=== PATIENT | male | born 1950 | race African-American/Black ===

== ENCOUNTER 2018-09-03 22:05 | Emergency (ER) | payer MEDICARE, MEDICAID ==
[~2018-09-03] VITALS: Ht 167.6 cm; Wt 75.0 kg
[~2018-09-03 22:05] MED LIST: CLOZ100T35; DOCU250C30; TRIH2TAB3
[2018-09-03] MEDS ORDERED: HALOPERIDOL LACTATE 5MG/ML VIAL IM ONE (23:15)
[2018-09-03 23:52] LABS: CLARITY URINE CLEAR (CLEAR); COLOR URINE YELLOW (YELLOW); KETONES URINE 2+ (NEGATIVE); LEUKOCYTE ESTERASE URINE NEGATIVE (NEGATIVE); NITRITE URINE NEGATIVE (NEGATIVE); OCCULT BLOOD URINE NEGATIVE (NEGATIVE); PROTEIN URINE TRACE (NEGATIVE); SPECIFIC GRAVITY URINE 1.029 (1.005-1.030)
[2018-09-04 00:07] LABS: *AMPHETAMINES SCREEN URINE NEGATIVE (NEGATIVE); *BARBITURATES SCREEN URINE NEGATIVE (NEGATIVE); *BENZODIAZEPINES SCREEN URINE NEGATIVE (NEGATIVE); *COCAINE SCREEN URINE NEGATIVE (NEGATIVE); CANNABINOID URINE SCREEN NEGATIVE (NEGATIVE); METHADONE URINE SCREEN NEGATIVE (NEGATIVE); OPIATES URINE SCREEN NEGATIVE (NEGATIVE); PHENCYCLIDINE URINE SCREEN NEGATIVE (NEGATIVE)
[2018-09-04 00:19] LABS: BASOPHILS % 0.2 % (0.0-2.0); HEMATOCRIT. 38.9 % (42.0-52.0); LYMPHOCYTES % 20.1 % (20.0-50.0); MEAN CORPUSCULAR HEMOGLOBIN 30.9 pg (28.0-32.0); MEAN CORPUSCULAR VOLUME 92.8 fL (80.0-94.0); MEAN PLATELET VOLUME 7.6 fl (7.4-10.4); MONOCYTES % 7.4 % (2.0-8.0); NEUTROPHILS % 72.3 % (40.0-76.0); PLATELET 206 x1000/uL (130-400); RED CELL DISTRIBUTION WIDTH 16.8 % (11.6-14.6)
[2018-09-04 00:27] LABS: CHLORIDE 110 mEq/L (98-107)
[2018-09-04 00:31] LABS: ETHANOL BLOOD < 10 mg/dL
[2018-09-04 09:15] VITALS: BP 138/78
== END 2018-09-04 13:49 | disposition home or self-care (01) ==
LOC: ER 22:05
DX: F20.9 Schizophrenia, unspecified (principal); F17.210 Nicotine dependence, cigarettes, uncomplicated
CPT/HCPCS: 36415; 80053; 80305; 80307; 80320; 80329; 81003; 83690; 85025; 93005; 96372; 99284; J1630; G0480

== ENCOUNTER 2019-10-22 21:31 | Emergency (ER) | payer MEDICARE, OTHER ==
[~2019-10-22] VITALS: Ht 170.2 cm; Wt 71.0 kg
[2019-10-22] MEDS ORDERED: SODIUM CHLORIDE 0.9% 1,000 ML IV ONE (23:27)
[2019-10-22] MEDS ORDERED: ONDANSETRON HCL 4MG/2ML INJ IV STA (23:27)
[2019-10-23 00:37] LABS: CHLORIDE 95 mEq/L (98-107)
[2019-10-23 00:40] LABS: BASOPHILS % 0.1 % (0.0-2.0); HEMATOCRIT. 36.3 % (42.0-52.0); HEMOGLOBIN. 12.5 g/dL (14.0-18.0); MEAN CORPUSCULAR HEMOGLOBIN 31.8 pg (28.0-32.0); MEAN CORPUSCULAR VOLUME 92.2 fL (80.0-94.0); MEAN PLATELET VOLUME 7.3 fl (7.4-10.4); MONOCYTES % 6.8 % (2.0-8.0); NEUTROPHILS % 64.1 % (40.0-76.0); PLATELET 238 x1000/uL (130-400); RED BLOOD CELL COUNT 3.94 mill/uL (4.7-6.1)
[2019-10-23 01:38] LABS: CLARITY URINE CLEAR (CLEAR); COLOR URINE YELLOW (YELLOW); KETONES URINE NEGATIVE (NEGATIVE); LEUKOCYTE ESTERASE URINE NEGATIVE (NEGATIVE); NITRITE URINE NEGATIVE (NEGATIVE); OCCULT BLOOD URINE NEGATIVE (NEGATIVE); PROTEIN URINE NEGATIVE (NEGATIVE); SPECIFIC GRAVITY URINE 1.007 (1.005-1.030); UROBILINOGEN URINE 0.2 E.U./dL (0.2-1.0)
[2019-10-23 10:00] VITALS: BP 130/65
== END 2019-10-23 10:37 | disposition left against medical advice (07) ==
LOC: ER 21:31 → EDBEDREQ 10-23 03:42 → EDBEDREQTM 10-23 03:42 → ENRESERV 10-23 08:14 → ER 10-23 10:37 → CANBEDREQ 10-23 11:54
DX: E87.1 Hypo-osmolality and hyponatremia (principal); J44.1 Chronic obstructive pulmonary disease with (acute) exacerbation; F03.90 Unspecified dementia, unspecified severity, without behavioral disturbance, psychotic disturbance, mood disturbance, and anxiety; F17.200 Nicotine dependence, unspecified, uncomplicated
CPT/HCPCS: 36415; 71045; 80053; 81003; 83605; 84484; 85025; 87040; 93005; 96361; 96374; 99285; J2405; J7030

== ENCOUNTER 2020-05-01 10:14 | Inpatient (IN) | payer MEDICARE, MEDICAID ==
[~2020-05-01] VITALS: Ht 167.6 cm; Wt 67.2 kg
[2020-05-01] MEDS ORDERED: TETANUS, DIPHTHERIA, PERTUSSIS VAC/PF 0.5ML (>7YR OLD) IM ONE (10:30)
[2020-05-01 10:46] LABS: BASOPHILS % 0.8 % (0.0-2.0); HEMATOCRIT. 35.1 % (42.0-52.0); HEMOGLOBIN. 12.2 g/dL (14.0-18.0); LYMPHOCYTES % 15.4 % (20.0-50.0); MEAN CORPUSCULAR HEMOGLOBIN 31.5 pg (28.0-32.0); MEAN PLATELET VOLUME 7.4 fl (7.4-10.4); MONOCYTES % 5.9 % (2.0-8.0); NEUTROPHILS % 77.9 % (40.0-76.0); PLATELET 219 x1000/uL (130-400); RED BLOOD CELL COUNT 3.86 mill/uL (4.7-6.1); RED CELL DISTRIBUTION WIDTH 14.7 % (11.6-14.6)
[2020-05-01 10:52] LABS: CHLORIDE 88 mEq/L (98-107)
[2020-05-01 10:56] LABS: ETHANOL BLOOD < 10 mg/dL
[2020-05-01] MEDS ORDERED: DIPHENHYDRAMINE 50MG/ML VIAL ONE (10:56)
[2020-05-01 10:59] LABS: LDL CHOLESTEROL 71 mg/dL (5-100)
[2020-05-01] MEDS ORDERED: DIPHENHYDRAMINE 50MG/ML VIAL IM ONE (11:00)
[2020-05-01] MEDS ORDERED: HALOPERIDOL LACTATE 5MG/ML VIAL IM ONE (11:00)
[2020-05-01 11:11] LABS: CREATINE KINASE 1600 IU/L (39-308)
[2020-05-01] MEDS ORDERED: LORAZEPAM 2MG/ML CPJ IV ONE ×2 (11:15→12:45)
[2020-05-01] MEDS ORDERED: IOHEXOL 350 MG/ML 200ML INFUS..BTL IV ONE (11:43)
[2020-05-01 11:58] LABS: PROTHROMBIN TIME 10.3 sec (9.6-11.0)
[2020-05-01 12:39] LABS: CLARITY URINE CLEAR (CLEAR); COLOR URINE YELLOW (YELLOW); KETONES URINE NEGATIVE (NEGATIVE); LEUKOCYTE ESTERASE URINE NEGATIVE (NEGATIVE); NITRITE URINE NEGATIVE (NEGATIVE); OCCULT BLOOD URINE TRACE (NEGATIVE); PROTEIN URINE NEGATIVE (NEGATIVE); SPECIFIC GRAVITY URINE 1.014 (1.005-1.030); UROBILINOGEN URINE 0.2 E.U./dL (0.2-1.0)
[2020-05-01] MEDS ORDERED: LIDOCAINE HCL/PF 1% 10 MG/ML 5ML VIAL IJ ONE (12:45)
[2020-05-01] MEDS ORDERED: BACITRACIN ZINC OINT UDPKT TOP ONE (12:45)
[2020-05-01] MEDS ORDERED: SODIUM CHLORIDE 0.9% 500 ML IV ONE (13:15)
[2020-05-01 13:19] LABS: *AMPHETAMINES SCREEN URINE NEGATIVE (NEGATIVE); *BARBITURATES SCREEN URINE NEGATIVE (NEGATIVE); *BENZODIAZEPINES SCREEN URINE NEGATIVE (NEGATIVE); *COCAINE SCREEN URINE NEGATIVE (NEGATIVE); METHADONE URINE SCREEN NEGATIVE (NEGATIVE)
[2020-05-01 13:20] LABS: OPIATES URINE SCREEN NEGATIVE (NEGATIVE); PHENCYCLIDINE URINE SCREEN NEGATIVE (NEGATIVE)
[2020-05-01 13:29] LABS: CANNABINOID URINE SCREEN NEGATIVE (NEGATIVE)
[2020-05-01] MEDS ORDERED: MAGNESIUM/ALUMINUM HYDROXIDE/SIMETHICONE 30ML UDC PO PRN (14:30)
[2020-05-01] MEDS ORDERED: ONDANSETRON HCL 4MG/2ML INJ IV PRN (14:30)
[2020-05-01] MEDS ORDERED: DOCUSATE SODIUM 100MG CAPSULE PO PRN (14:30)
[2020-05-01] MEDS ORDERED: HALOPERIDOL LACTATE 5MG/ML VIAL IM PRN (14:30)
[2020-05-01] MEDS ORDERED: ZOLPIDEM TARTRATE 5MG TABLET PO PRN (14:30)
[2020-05-01] MEDS ORDERED: IPRATROPIUM/ALBUTEROL 0.5-3(2.5)MG/3ML NEB NEB PRN (14:30)
[2020-05-01] MEDS ORDERED: NITROGLYCERIN 0.4MG TABLET SL SL PRN (14:30)
[2020-05-01] MEDS ORDERED: GUAIFENESIN 200MG/10ML SUGAR FREE UDC PO PRN (14:30)
[2020-05-01] MEDS ORDERED: CLONIDINE 0.1MG TABLET PO PRN (14:30)
[2020-05-01] MEDS ORDERED: ACETAMINOPHEN 325MG TABLET PO PRN ×2 (14:30)
[2020-05-01 14:56] LABS: T4 FREE 1.25 ng/dL (0.76-1.46)
[2020-05-01 15:07] LABS: FOLIC ACID (FOLATE) SERUM 17.6 ng/mL (>5.38)
[2020-05-01] MEDS: ENOXAPARIN 40MG/0.4ML SYR SUBCUT SCH (15:15)
[2020-05-01] MEDS: SODIUM CHLORIDE 0.9% 1,000 ML IV SCH (15:15)
[2020-05-01 19:14] VITALS: BP 129/65
[2020-05-01 19:29] VITALS: BP 117/57
[2020-05-01 20:00] VITALS: BP 128/63
[2020-05-01] MEDS: FAMOTIDINE 20MG TABLET PO SCH (21:00)
[2020-05-01] MEDS: METOPROLOL TARTRATE 25MG TABLET PO SCH (21:00)
[2020-05-01 22:00] VITALS: BP 132/65
[2020-05-02] VITALS (17 sets, daily range): BP systolic 107–143; BP diastolic 52–74
[2020-05-02 00:27] LABS: CREATINE KINASE MB FRACTION 7.7 ng/mL (0.5-3.6)
[2020-05-02] MEDS ORDERED: HAL5 PO (02:20)
[2020-05-02] MEDS: SODIUM CHLORIDE 0.9% 1,000 ML IV SCH ×2 (04:45→16:43)
[2020-05-02 07:29] LABS: CHLORIDE 105 mEq/L (98-107)
[2020-05-02 07:35] LABS: BASOPHILS % 0.4 % (0.0-2.0); HEMATOCRIT. 39.1 % (42.0-52.0); HEMOGLOBIN. 13.1 g/dL (14.0-18.0); MEAN CORPUSCULAR HEMOGLOBIN 31.2 pg (28.0-32.0); MEAN CORPUSCULAR VOLUME 93.1 fL (80.0-94.0); MEAN PLATELET VOLUME 7.5 fl (7.4-10.4); MONOCYTES % 9.4 % (2.0-8.0); NEUTROPHILS % 66.2 % (40.0-76.0); PLATELET 215 x1000/uL (130-400); RED CELL DISTRIBUTION WIDTH 15.1 % (11.6-14.6)
[2020-05-02 07:37] LABS: PHOSPHORUS 2.9 mg/dL (2.5-4.9)
[2020-05-02 07:52] LABS: CREATINE KINASE 2759 IU/L (39-308)
[2020-05-02] MEDS: METOPROLOL TARTRATE 25MG TABLET PO SCH ×2 (08:30→20:23)
[2020-05-02] MEDS: CHOLECALCIFEROL (D3) 1000 UNIT TABLET PO SCH (08:30)
[2020-05-02] MEDS: ASPIRIN 325MG EC TABLET PO SCH (08:30)
[2020-05-02] MEDS: FAMOTIDINE 20MG TABLET PO SCH ×2 (08:31→20:22)
[2020-05-02] MEDS: ENOXAPARIN 40MG/0.4ML SYR SUBCUT SCH (08:31)
[2020-05-02] MEDS: ZINC SULFATE 220 MG ( 50 ) CAPSULE PO SCH (08:32)
[2020-05-03] VITALS (14 sets, daily range): BP systolic 119–155; BP diastolic 49–86
[2020-05-03] MEDS: SODIUM CHLORIDE 0.9% 1,000 ML IV SCH ×2 (05:39→19:24)
[2020-05-03] MEDS: ENOXAPARIN 40MG/0.4ML SYR SUBCUT SCH (10:18)
[2020-05-03] MEDS: CHOLECALCIFEROL (D3) 1000 UNIT TABLET PO SCH (10:18)
[2020-05-03] MEDS: ZINC SULFATE 220 MG ( 50 ) CAPSULE PO SCH (10:18)
[2020-05-03] MEDS: ASPIRIN 325MG EC TABLET PO SCH (10:18)
[2020-05-03] MEDS: FAMOTIDINE 20MG TABLET PO SCH ×2 (10:19→20:18)
[2020-05-03] MEDS: METOPROLOL TARTRATE 25MG TABLET PO SCH ×2 (10:19→20:18)
[2020-05-04] VITALS (8 sets, daily range): BP systolic 121–154; BP diastolic 51–73
[2020-05-04 06:48] LABS: BASOPHILS % 0.4 % (0.0-2.0); EOSINOPHILS % 0.4 % (0.0-5.0); HEMATOCRIT. 38.5 % (42.0-52.0); HEMOGLOBIN. 12.9 g/dL (14.0-18.0); LYMPHOCYTES % 35.6 % (20.0-50.0); MEAN CORPUSCULAR HEMOGLOBIN 31.6 pg (28.0-32.0); MEAN CORPUSCULAR VOLUME 94.4 fL (80.0-94.0); MEAN PLATELET VOLUME 7.4 fl (7.4-10.4); MONOCYTES % 10.8 % (2.0-8.0); NEUTROPHILS % 52.8 % (40.0-76.0); PLATELET 212 x1000/uL (130-400); RED BLOOD CELL COUNT 4.08 mill/uL (4.7-6.1); RED CELL DISTRIBUTION WIDTH 15.3 % (11.6-14.6)
[2020-05-04 07:06] LABS: CHLORIDE 107 mEq/L (98-107)
[2020-05-04 07:19] LABS: PHOSPHORUS 3.2 mg/dL (2.5-4.9)
[2020-05-04] MEDS: SODIUM CHLORIDE 0.9% 1,000 ML IV SCH (08:02)
[2020-05-04] MEDS: METOPROLOL TARTRATE 25MG TABLET PO SCH (08:02)
[2020-05-04] MEDS: ENOXAPARIN 40MG/0.4ML SYR SUBCUT SCH (08:03)
[2020-05-04] MEDS: ASPIRIN 325MG EC TABLET PO SCH (08:03)
[2020-05-04] MEDS: FAMOTIDINE 20MG TABLET PO SCH (08:03)
[2020-05-04] MEDS: ZINC SULFATE 220 MG ( 50 ) CAPSULE PO SCH (08:03)
[2020-05-04] MEDS: CHOLECALCIFEROL (D3) 1000 UNIT TABLET PO SCH (08:03)
== END 2020-05-04 15:15 | disposition home health service (06) | DRG 640 ==
LOC: ER 10:30 → 3WST 13:41 → EDBEDREQSVC 13:51 → EDBEDREQ 13:51 → EDBEDREQSVC 15:08 → ENRESERV 15:32 → 3WST 05-02 11:23
PROVIDERS: ADMIT Internal Medicine; ATTEND Internal Medicine
PROC: 0HQNXZZ Repair Left Foot Skin, External Approach (ICD-10-PCS; principal; 2020-05-01)
DX: E87.1 Hypo-osmolality and hyponatremia (principal); G92 Toxic encephalopathy; M62.82 Rhabdomyolysis; E44.1 Mild protein-calorie malnutrition; D63.8 Anemia in other chronic diseases classified elsewhere; E83.51 Hypocalcemia; S91.312A Laceration without foreign body, left foot, initial encounter; F03.90 Unspecified dementia, unspecified severity, without behavioral disturbance, psychotic disturbance, mood disturbance, and anxiety; F20.9 Schizophrenia, unspecified; E87.8 Other disorders of electrolyte and fluid balance, not elsewhere classified; I10 Essential (primary) hypertension; Z78.1 Physical restraint status; Z79.899 Other long term (current) drug therapy; Z68.23 Body mass index [BMI] 23.0-23.9, adult
CPT/HCPCS: 36415; 70496; 70498; 71045; 80053; 80061; 80305; 80320; 81003; 82140; 82550; 82553; 82607; 82746; 82962; 83036; 83540; 83550; 83605; 83721; 83735; 83880; 84100; 84439; 84484; 85025; 90715; 93005; 93970; 97162; 97166; 99285; J1200; J1630; J1650; J2060; J2405; J3490; J7040; Q9967; G0480

== ENCOUNTER 2020-11-07 13:22 | Inpatient (IN) | payer MEDICARE, OTHER ==
[~2020-11-07] VITALS: Ht 167.6 cm; Wt 70.0 kg
[~2020-11-07 13:22] MED LIST changes: +HAL5 PO
[2020-11-07 16:34] LABS: BASOPHILS % 0.4 % (0.0-2.0); EOSINOPHILS % 0.3 % (0.0-5.0); HEMATOCRIT. 43.4 % (42.0-52.0); HEMOGLOBIN. 14.9 g/dL (14.0-18.0); LYMPHOCYTES % 29.5 % (20.0-50.0); MEAN CORPUSCULAR HEMOGLOBIN 31.8 pg (28.0-32.0); MEAN CORPUSCULAR VOLUME 92.6 fL (80.0-94.0); MEAN PLATELET VOLUME 7.2 fl (7.4-10.4); MONOCYTES % 8.4 % (2.0-8.0); NEUTROPHILS % 61.4 % (40.0-76.0); PLATELET 256 x1000/uL (130-400); RED BLOOD CELL COUNT 4.69 mill/uL (4.7-6.1); RED CELL DISTRIBUTION WIDTH 16.1 % (11.6-14.6)
[2020-11-07 16:36] LABS: CHLORIDE 108 mEq/L (98-107)
[2020-11-07 16:40] LABS: INR 0.9; PARTIAL THROMBOPLASTIN TIME 30.3 sec (23.4-31.0); PROTHROMBIN TIME 10.2 sec (9.6-11.0)
[2020-11-07] MEDS ORDERED: ASPIRIN 325MG EC TABLET PO ONE (17:15)
[2020-11-07 20:50] VITALS: BP 134/77
[2020-11-08] VITALS: BP 125/74
[2020-11-08] MEDS ORDERED: ACETAMINOPHEN 650MG/20.3ML UDC PO PRN
[2020-11-08] MEDS ORDERED: CLONIDINE 0.1MG TABLET PO PRN
[2020-11-08] MEDS ORDERED: IPRATROPIUM/ALBUTEROL 0.5-3(2.5)MG/3ML NEB HHN PRN ×2
[2020-11-08] MEDS: NICOTINE 14MG PATCH TD SCH (01:00)
[2020-11-08] MEDS ORDERED: TOPUD MT (01:44)
[2020-11-08 04:00] VITALS: BP 130/82
[2020-11-08 08:00] VITALS: BP 134/70
[2020-11-08] MEDS ORDERED: PNEUMOCOCCAL 23-VAL P-SAC VAC 0.5 ML IM ONE (08:00)
[2020-11-08] MEDS: ASPIRIN 81MG TABLET PO SCH (08:15)
[2020-11-08 12:00] VITALS: BP 127/74
[2020-11-08 12:24] LABS: *BENZODIAZEPINES SCREEN URINE NEGATIVE (NEGATIVE); *COCAINE SCREEN URINE NEGATIVE (NEGATIVE); METHADONE URINE SCREEN NEGATIVE (NEGATIVE); OPIATES URINE SCREEN NEGATIVE (NEGATIVE); PHENCYCLIDINE URINE SCREEN NEGATIVE (NEGATIVE)
[2020-11-08 12:25] LABS: *AMPHETAMINES SCREEN URINE NEGATIVE (NEGATIVE); *BARBITURATES SCREEN URINE NEGATIVE (NEGATIVE); CANNABINOID URINE SCREEN NEGATIVE (NEGATIVE)
[2020-11-08 16:00] VITALS: BP 106/64
[2020-11-08 16:17] LABS: BASOPHILS % 0.4 % (0.0-2.0); EOSINOPHILS % 0.5 % (0.0-5.0); HEMATOCRIT. 41.3 % (42.0-52.0); HEMOGLOBIN. 14.3 g/dL (14.0-18.0); LYMPHOCYTES % 38.3 % (20.0-50.0); MEAN CORPUSCULAR HEMOGLOBIN 31.5 pg (28.0-32.0); MEAN CORPUSCULAR VOLUME 90.9 fL (80.0-94.0); MEAN PLATELET VOLUME 7.2 fl (7.4-10.4); MONOCYTES % 10.1 % (2.0-8.0); NEUTROPHILS % 50.7 % (40.0-76.0); PLATELET 241 x1000/uL (130-400); RED BLOOD CELL COUNT 4.55 mill/uL (4.7-6.1); RED CELL DISTRIBUTION WIDTH 15.7 % (11.6-14.6)
[2020-11-08 20:00] VITALS: BP 130/89
[2020-11-08 20:35] LABS: CHLORIDE 106 mEq/L (98-107)
[2020-11-09] VITALS: BP 115/72
[2020-11-09 04:00] VITALS: BP 106/65
[2020-11-09 08:30] VITALS: BP 104/71
[2020-11-09] MEDS: HALOPERIDOL 5MG TABLET PO SCH ×2 (10:03→20:43)
[2020-11-09] MEDS: NICOTINE 14MG PATCH TD SCH (10:03)
[2020-11-09] MEDS: ASPIRIN 81MG TABLET PO SCH (10:04)
[2020-11-09 12:00] VITALS: BP 104/50
[2020-11-09 12:31] LABS: CHLORIDE 102 mEq/L (98-107)
[2020-11-09 16:00] VITALS: BP 116/76
[2020-11-09] MEDS: ONDANSETRON HCL 4MG/2ML INJ IV PRN ×2 (17:28→21:59)
[2020-11-09 20:00] VITALS: BP_SYST 113; BP_SYST 126; BP_DIAS 43; BP_DIAS 46
[2020-11-09] MEDS: BENZTROPINE MESYLATE 1MG TABLET PO SCH (20:43)
[2020-11-10] VITALS: BP 117/33
[2020-11-10 04:00] VITALS: BP 116/62
[2020-11-10 06:44] LABS: BASOPHILS % 0.3 % (0.0-2.0); EOSINOPHILS % 0.6 % (0.0-5.0); HEMATOCRIT. 38.1 % (42.0-52.0); HEMOGLOBIN. 13.1 g/dL (14.0-18.0); LYMPHOCYTES % 41.6 % (20.0-50.0); MEAN CORPUSCULAR HEMOGLOBIN 31.5 pg (28.0-32.0); MEAN CORPUSCULAR VOLUME 91.7 fL (80.0-94.0); MEAN PLATELET VOLUME 7.3 fl (7.4-10.4); MONOCYTES % 10.7 % (2.0-8.0); NEUTROPHILS % 46.8 % (40.0-76.0); PLATELET 230 x1000/uL (130-400); RED BLOOD CELL COUNT 4.16 mill/uL (4.7-6.1); RED CELL DISTRIBUTION WIDTH 15.3 % (11.6-14.6)
[2020-11-10 07:58] LABS: CHLORIDE 103 mEq/L (98-107)
[2020-11-10 08:00] VITALS: BP 133/61
[2020-11-10] MEDS: NICOTINE 14MG PATCH TD SCH (08:53)
[2020-11-10] MEDS: HALOPERIDOL 5MG TABLET PO SCH ×2 (08:53→21:52)
[2020-11-10] MEDS: ASPIRIN 81MG TABLET PO SCH (08:53)
[2020-11-10 12:00] VITALS: BP 125/57
[2020-11-10 16:00] VITALS: BP 123/70
[2020-11-10 20:00] VITALS: BP 105/43
[2020-11-10] MEDS: BENZTROPINE MESYLATE 1MG TABLET PO SCH (21:52)
[2020-11-11] VITALS: BP 104/70
[2020-11-11 04:00] VITALS: BP 143/71
[2020-11-11 08:00] VITALS: BP 134/74
[2020-11-11] MEDS: HALOPERIDOL 5MG TABLET PO SCH ×2 (09:21→21:09)
[2020-11-11] MEDS: NICOTINE 14MG PATCH TD SCH (09:21)
[2020-11-11] MEDS: ASPIRIN 81MG TABLET PO SCH (09:21)
[2020-11-11 12:00] VITALS: BP 123/61
[2020-11-11 16:00] VITALS: BP 122/71
[2020-11-11] MEDS ORDERED: LORAZEPAM 1MG TABLET PO NR (16:15)
[2020-11-11] MEDS ORDERED: LORAZEPAM 2MG/ML CPJ IV NR (17:30)
[2020-11-11 20:00] VITALS: BP 109/56
[2020-11-11] MEDS: BENZTROPINE MESYLATE 1MG TABLET PO SCH (21:09)
[2020-11-12] VITALS: BP 107/60
[2020-11-12 04:00] VITALS: BP 105/58
[2020-11-12 07:49] VITALS: BP 118/70
[2020-11-12] MEDS: ASPIRIN 81MG TABLET PO SCH (08:06)
[2020-11-12] MEDS: HALOPERIDOL 5MG TABLET PO SCH ×2 (08:06→20:20)
[2020-11-12] MEDS: NICOTINE 14MG PATCH TD SCH (08:06)
[2020-11-12 11:48] VITALS: BP 115/43
[2020-11-12 16:00] VITALS: BP 124/57
[2020-11-12] MEDS ORDERED: CLOPIDOGREL 75MG TABLET PO SCH (16:30)
[2020-11-12 20:00] VITALS: BP 120/60
[2020-11-12] MEDS: BENZTROPINE MESYLATE 1MG TABLET PO SCH (20:20)
[2020-11-13] VITALS: BP 115/59
[2020-11-13 04:00] VITALS: BP 108/60
[2020-11-13] MEDS ORDERED: IOHEXOL-350 100 ML BOTTLE ONE (06:21)
[2020-11-13 08:00] VITALS: BP 132/86
[2020-11-13] MEDS: ASPIRIN 81MG TABLET PO SCH (08:13)
[2020-11-13] MEDS: NICOTINE 14MG PATCH TD SCH (08:14)
[2020-11-13] MEDS: HALOPERIDOL 5MG TABLET PO SCH (08:14)
[2020-11-13 12:00] VITALS: BP 118/62
[2020-11-13 16:00] VITALS: BP 134/60
[2020-11-13] MEDS ORDERED: CLOP75TA15 PO (17:10)
[2020-11-13] MEDS ORDERED: LIP40 PO (17:10)
[2020-11-13] MEDS ORDERED: ASPI-1160 PO (17:10)
[2020-11-13 17:56] VITALS: BP 134/60
[2020-11-13] MEDS ORDERED: ATORVASTATIN CALCIUM 40MG TABLET PO SCH (21:00)
== END 2020-11-13 18:43 | disposition home health service (06) | DRG 65 ==
LOC: ER 13:36 → ENRESERV 20:06 → 7EST 21:22
PROVIDERS: ADMIT Internal Medicine; ATTEND Internal Medicine
DX: I63.9 Cerebral infarction, unspecified (principal); I50.22 Chronic systolic (congestive) heart failure; I42.9 Cardiomyopathy, unspecified; M19.90 Unspecified osteoarthritis, unspecified site; F03.90 Unspecified dementia, unspecified severity, without behavioral disturbance, psychotic disturbance, mood disturbance, and anxiety; J44.9 Chronic obstructive pulmonary disease, unspecified; M48.02 Spinal stenosis, cervical region; Z20.822 Contact with and (suspected) exposure to COVID-19; G83.14 Monoplegia of lower limb affecting left nondominant side; Z86.73 Personal history of transient ischemic attack (TIA), and cerebral infarction without residual deficits; Z79.899 Other long term (current) drug therapy
CPT/HCPCS: 36415; 70496; 70498; 70551; 71045; 72141; 72146; 72148; 73130; 80048; 80053; 80061; 80305; 83036; 83735; 83880; 84443; 84484; 85025; 87426; 90732; 93005; 93306; 97162; 99285; J1630; J2060; J2405; Q9967

== ENCOUNTER 2021-08-06 16:41 | Emergency (ER) | payer MEDICARE, OTHER ==
[~2021-08-06] VITALS: Ht 175.3 cm; Wt 77.0 kg
[~2021-08-06 16:41] MED LIST changes: +ASPI-1160 PO; +CLOP75TA15 PO; -HAL5 PO; +HALO5TAB2 PO; +LIP40 PO; +TOPUD MT
[2021-08-06 16:47] VITALS: BP 162/96
== END 2021-08-06 21:53 | disposition home or self-care (01) ==
LOC: ER 16:41
DX: T18.108A Unspecified foreign body in esophagus causing other injury, initial encounter (principal); X58.XXXA Exposure to other specified factors, initial encounter; F03.90 Unspecified dementia, unspecified severity, without behavioral disturbance, psychotic disturbance, mood disturbance, and anxiety; Z86.73 Personal history of transient ischemic attack (TIA), and cerebral infarction without residual deficits; Z79.899 Other long term (current) drug therapy
CPT/HCPCS: 70360; 70490; 71046; 71250; 74018; 99284